=== PATIENT | male | born 1995 | race African-American/Black ===

== ENCOUNTER 2019-06-23 17:03 | Emergency (ER) | payer SELFPAY ==
[~2019-06-23] VITALS: Ht 188 cm; Wt 68.0 kg
[2019-06-23] MEDS ORDERED: IBUPROFEN 600MG TABLET PO ONE (18:30)
[2019-06-23] MEDS ORDERED: BACITRACIN ZINC OINT UDPKT TOP ONE (18:30)
[2019-06-23] MEDS ORDERED: TETANUS, DIPHTHERIA, PERTUSSIS VAC/PF 0.5ML (>7YR OLD) IM ONE (18:30)
[2019-06-23] MEDS ORDERED: LIDOCAINE HCL/PF 1% 10 MG/ML 5ML VIAL IJ ONE (18:30)
[2019-06-23 18:31] VITALS: BP 107/53
== END 2019-06-23 19:13 | disposition home or self-care (01) ==
LOC: ER 17:29
DX: S61.212A Laceration without foreign body of right middle finger without damage to nail, initial encounter (principal); W26.0XXA Contact with knife, initial encounter; Y93.89 Activity, other specified; Y92.89 Other specified places as the place of occurrence of the external cause; Y99.0 Civilian activity done for income or pay
CPT/HCPCS: 90471; 90715; 99283; J3490; Z7610

== ENCOUNTER 2019-07-01 15:28 | Emergency (ER) | payer SELFPAY ==
[~2019-07-01] VITALS: Ht 180.3 cm; Wt 88.0 kg
[2019-07-01 19:22] VITALS: BP 130/60
== END 2019-07-01 19:23 | disposition home or self-care (01) ==
LOC: ER 15:28
DX: S61.212D Laceration without foreign body of right middle finger without damage to nail, subsequent encounter (principal); Z98.890 Other specified postprocedural states; X58.XXXD Exposure to other specified factors, subsequent encounter
CPT/HCPCS: 99283

== ENCOUNTER 2019-11-01 08:55 | Emergency (ER) | payer SELFPAY ==
[~2019-11-01] VITALS: Ht 188 cm; Wt 77.1 kg
[2019-11-01 10:00] LABS: BASOPHILS % 0.8 % (0.0-2.0); EOSINOPHILS % 3.3 % (0.0-5.0); HEMATOCRIT. 45.1 % (42.0-52.0); HEMOGLOBIN. 15.4 g/dL (14.0-18.0); LYMPHOCYTES % 35.4 % (20.0-50.0); MEAN CORPUSCULAR HEMOGLOBIN 30.8 pg (28.0-32.0); MEAN CORPUSCULAR VOLUME 89.9 fL (80.0-94.0); MEAN PLATELET VOLUME 8.2 fl (7.4-10.4); MONOCYTES % 9.8 % (2.0-8.0); NEUTROPHILS % 50.7 % (40.0-76.0); PLATELET 170 x1000/uL (130-400); RED BLOOD CELL COUNT 5.02 mill/uL (4.7-6.1); RED CELL DISTRIBUTION WIDTH 14.1 % (11.6-14.6)
[2019-11-01 10:03] LABS: CHLORIDE 105 mEq/L (98-107)
[2019-11-01 11:09] VITALS: BP 112/70
== END 2019-11-01 11:09 | disposition home or self-care (01) ==
LOC: ER 08:55
DX: J06.9 Acute upper respiratory infection, unspecified (principal); B34.9 Viral infection, unspecified; R07.89 Other chest pain
CPT/HCPCS: 36415; 71045; 80053; 83880; 84484; 85025; 93005; 99285